=== PATIENT | male | born 1940 | race Caucasian/White ===

== ENCOUNTER 2016-10-26 12:12 | Observation (INO) | payer MEDICARE ==
[~2016-10-26] VITALS: Ht 162.6 cm; Wt 115.5 kg
[2016-10-26 12:53] LABS: BASOPHILS 0.4 % (0.0-2.0); EOSINOPHILS 1.5 % (0-7); HEMATOCRIT 45.2 % (42.0-54.0); HEMOGLOBIN 15.7 g/dL (13.5-17.5); IMMATURE GRANULOCYTES 0.5 % (0-5); LYMPHOCYTES 11.1 % (15-50); MCH 33.1 pg (26.0-34.0); MCHC 34.7 g/dL (31.0-37.0); MCV 95.2 fL (80.0-100.0); MEAN PLATELET VOLUME 9.4 fL (7.4-10.4); MONOCYTES 6.9 % (2-11); NEUTROPHILS 79.6 % (40-80); PLATELET COUNT 144 10x3/uL (130-400); RBC 4.75 10x6/uL (4.20-6.10); RDW 12.8 % (11.5-14.5); WBC 14.3 10x3/uL (4.8-10.8)
[2016-10-26 13:00] LABS: APTT 28.1 SECONDS (22.8-39.4); INR 1.1 (0.85-1.17); PROTIME 14.1 SECONDS (11.6-15.0)
--- NOTE | 2016-10-26 13:06 | NUR ---
TRANSFER FROM ADMISSIONS BY W/C. OREINTED TO ROOM. CALL LIGHT IN REACH. WILL CONT. PLAN OF CARE.
[2016-10-26 13:13] LABS: ALBUMIN 4.1 g/dL (3.4-5.0); ALKALINE PHOSPHATASE 59 U/L (46-116); ALT (SGPT) 37 U/L (10-68); CALC OSMOLALITY 290 mosm/kg (275-300); CALCIUM 8.9 mg/dL (8.5-10.1); CARBON DIOXIDE 30.3 mmol/L (21.0-32.0); CHLORIDE - SERUM 105 mmol/L (98-107); CREATININE - SERUM 1.3 mg/dL (0.6-1.3); GLUCOSE 143 mg/dL (74-106); SODIUM 143 mmol/L (136-145); UREA NITROGEN 23 mg/dL (7-18); eGFR NON AFRICAN AMERICAN 57 mL/min (90-120)
[2016-10-26 13:14] LABS: C-REACTIVE PROTEIN < 0.2 mg/dL (0.0-0.9)
[2016-10-26] MEDS ORDERED: FUROSEMIDE20 MG PO (13:26)
[2016-10-26] MEDS ORDERED: COREG12.5 MG PO (13:26)
[2016-10-26] MEDS ORDERED: BAYER CHEWABLE81 MG PO (13:26)
[2016-10-26] MEDS ORDERED: MULTIPLE VITAMI1 TA1 PO (13:27)
[2016-10-26] MEDS ORDERED: VITAMIN B-12500 MC1 PO (13:27)
[2016-10-26] MEDS ORDERED: LIPITOR20 MG PO ×2 (13:28→13:32)
[2016-10-26] MEDS ORDERED: DESERYL100 MG PO (13:29)
[2016-10-26] MEDS ORDERED: XALATAN 0.0052.5 ML EACH EYE (13:31)
[2016-10-26] MEDS ORDERED: AZOPT 1% OPHT D10 ML EACH EYE (13:32)
[2016-10-26 13:33] VITALS: BP 149/100; Ht 162.6 cm; Wt 115.5 kg
[2016-10-26 14:21] LABS: CKMB 1.5 U/L (0.0-3.6); CREATINE KINASE 49 UL (21-232); TROPONIN-I 0.037 ng/mL (0.000-0.060)
[2016-10-26 16:39] VITALS: BP 168/79
[2016-10-26 18:44] LABS: CKMB 1.5 U/L (0.0-3.6); CREATINE KINASE 50 UL (21-232); TROPONIN-I 0.042 ng/mL (0.000-0.060)
--- NOTE | 2016-10-26 19:30 | NUR ---
RESUMED CARE OF PT, UP IN CHAIR RESPIRATIONS EVEN AND UNLABORED ON ROOM AIR. 78 FLUTTER ON TELEMETRY. LEFT THUMB IV INFUSING NS @ 75 AND CARDIZEM @ 10. PLAN OF CARE DISCUSSED, CALL LIGHT IN REACH. WILL CONTINUE TO MONITOR. SEE NURSE ASSESSMENT.
[2016-10-26 20:00] VITALS: BP 159/79
[2016-10-27] VITALS: BP 148/75
[2016-10-27 02:31] LABS: CKMB 1.3 U/L (0.0-3.6); CREATINE KINASE 45 UL (21-232); TROPONIN-I 0.055 ng/mL (0.000-0.060)
--- NOTE | 2016-10-27 03:18 | NUR ---
DIRECTOR QUALITY SYSTEMS AT BEDSIDE TO OBTAIN VITALS, CALL LIGHT IN REACH. WILL CONTINUE WITH PLAN OF CARE.
[2016-10-27 04:00] VITALS: BP 142/73
[2016-10-27 07:26] VITALS: BP 138/75
--- NOTE | 2016-10-27 09:55 | NUR ---
TELEMETRY SR. HR 76. WILL CONT. PLAN OF CARE.
[2016-10-27] MEDS ORDERED: CARDIZEM CD240 MG PO (10:30)
--- NOTE | 2016-10-27 11:34 | NUR ---
IV AND TELEMETRY DCD. DC PLANS GIVEN. UNDAERSTANDING VOICED. ESCORTED TO CAR BY W/C.
--- NOTE | 2016-10-30 13:25 | CN ---
PATIENT NAME:DEJON MTZ MEDICAL RECORD: [id number] : 44 LOCATION:D. 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 He has been feeling off and on poorly with bronchitic type symptomatology. He has had steroids and antibiotics. Today, he had worsening of shortness of breath, presented to Dr. Yu's office, noted to be in atrial flutter, 2:1 block. We are asked to see him concerning his cardiovascular status. He is somewhat dyspneic. No palpitations. No nayeli volume overload. PAST MEDICAL HISTORY: Include: 1. History of coronary artery disease. 2. Hypertension. 3. Hyperlipidemia. ALLERGIES: CODEINE AND HYDROCODONE. MEDICATIONS: Include Lasix 20 every day, trazodone 100 q.h.s., aspirin 81 every day, Coreg 25 b.i.d. and atorvastatin 20 every day. SOCIAL HISTORY: . He is a nonsmoker and nondrinker. Easily takes care of his ADLs. No set exercise program. Good family support. REVIEW OF SYSTEMS: The patient reports easy bruising but reports no swollen glands. The patient reports no fever, no night sweats, no significant weight gain, no significant weight loss. No significant exercise tolerance. The patient reports no dry eyes, no irritation, no vision change. Patient reports no difficulty hearing and no ear pain. Patient reports no frequent nose bleeds or nose and sinus problems. Patient reports on arm pain on exertion. No shortness of breath while lying down. No history of heart murmur. Patient reports no cough, no wheezing or coughing up blood. Patient reports no abdominal pain, no vomiting. Normal appetite. No diarrhea and not vomiting blood. No nausea and no constipation. Patient reports no incontinence. No difficulty urinating. No hematuria. No increased frequency. Patient reports no muscle aches. No weakness, no arthralgias, no back pain. No swelling of the extremities. Patient reports no abnormal mole, no jaundice, no rashes. Reports no loss of consciousness. No weakness and no numbness. No seizures, dizziness, or headaches. The patient reports no depression, no sleep disturbance, feeling safe in a relationship and no alcohol abuse. Patient reports on fatigue. Reports no runny nose or sinus pressure. No itching, no hives, and no frequent sneezing. PHYSICAL EXAMINATION: GENERAL: Pleasant 76-year-old gentleman, in no acute distress. VITAL SIGNS: Blood pressure 149/100, 149 regular currently. HEENT: Normocephalic and atraumatic. NECK: There is no JVD or bruit. CONSULT REPORT [id number] DEJON MTZ HEART: Regular. LUNGS: Good air excursion. ABDOMEN: Soft and nontender. EXTREMITIES: Pulse well preserved, 2+, with no edema. IMPRESSION: Atrial flutter of unknown duration may be related to his recent illness, steroids, etc. At this point in time, start Xarelto for cerebrovascular accident prophylaxis. We will start Cardizem drip, could be able to switch this over orally. Further recommendations based on above. TRANSINT:[id number] Voice Confirmation ID: [id number] DOCUMENT ID: [id number] LORETTA MARES MD at 1325 CC: [id number] DICTATION DATE: 10/26/16 1403 CARDIOVASCULAR SURGICAL TECH: 10/26/16 1632 DIS IN 10/27/16 [id number] [place] [address]
== END 2016-10-27 11:35 | disposition home or self-care (01) ==
LOC: D.M2 12:12 → OBSVTIME 12:13 → D.M2 10-27 11:35
PROVIDERS: ADMIT Family Medicine
DX: I48.92 Unspecified atrial flutter (principal); I25.10 Atherosclerotic heart disease of native coronary artery without angina pectoris; I10 Essential (primary) hypertension; E78.5 Hyperlipidemia, unspecified; J44.9 Chronic obstructive pulmonary disease, unspecified; E11.9 Type 2 diabetes mellitus without complications

== ENCOUNTER 2017-02-01 10:16 | Outpatient (CLI) | payer MEDICARE ==
[~2017-02-01] VITALS: Ht 162.6 cm; Wt 118.2 kg
--- NOTE | ~2017-02-01 | HEMODYNAMI ---
PATIENT:DEJON MTZ MEDICAL RECORD: [id number] : 44 LOCATION:DRossCAT ADMISSION DATE: 02/01/17 Generatedon:02/01/201714:22 Patient name: DEJON MTZ Patient #: [id number] SSN: : 1940 Date of study: 02/01/2017 Page: Of Hemodynamic Procedure Report Patient Data Patient Demographics Procedure consent was obtained First Name: DEJON Gender: Male Last Name: SMITH : 1940 [facility] Initial: SAUL Age: 76 year(s) Patient #: [id number] Race: Unknown Additional ID: [id number] Contact details [address]: [address] [place] [address] [place] State: [place] City: [place] Zip code: [address] Admission Admission Data Admission Date: 02/01/2017 Admission Time: 10:16 Arrival Date: 02/01/2017 Arrival Time: 13:00 Admit Source: Other Insurance Payor: Medicare Height (in.): 64 BSA: 2.22 (m2) Height (cm.): 162.56 BMI: 46.17 (kg/m2) Weight (lbs.): 269 Weight (kg.): 122.02 Lab Results Lab Result Date: 02/01/2017 Lab Result Time: 0:00 Biochemistry Name Units Result Min Max BUN mg/dl 43 --(----)-* 7 18 Creatinine mg/dl 1.6 --(----)-* 0.6 1.3 CBC Name Units Result Min Max Hemoglobin g/dl 13.1 -*(----)-- 13.5 17.5 Procedure Procedure Types Cath Procedure Diagnostic Procedure Cardioversion BERONICA Procedure Description Procedure Date Procedure Date: 02/01/2017 Procedure Start Time: 14:02 Procedure End Time: 14:08 Procedure Staff Name Function Carter Tamayo MD Performing Physician Shelby Hall RN Nurse Danielito Fritz RT Monitor Romelia Campos RT Radiological Technologist Procedure Data Cath Procedure Fluoroscopy Diagnostic fluoroscopy Total fluoroscopy Time: 0 time: 0 min min Diagnostic fluoroscopy Total fluoroscopy dose: 0 dose: 0 mGy mGy Contrast Material Contrast Material Type Amount (ml) Isovue 370 0 Estimated blood loss: 0 ml Procedure Complications No complications Procedure Medications Medication Administration Route Dosage Oxygen NC 2 l/min Hurricaine [place] P.O. 1 Sprays Refer to Anesthesia Notes for Sedation Medications Hemodynamics Rest BSA: 2.22 (m2) O2 Consumption: Estimated: 301.92 (ml/min) O2 Consumption indexed : Estimated:136 (ml/min/m) Pre Cath Intra NCS Post Cath Vital Signs Time Heart Resp SPO2 etCO2 [id number] NIBP (mmHg) Rhythm Pain Sedat ion Rate (ipm) (%) (mmHg) (mmHg) Status Level (bpm) 13:57:53 132 20 96 0 0 138/102(116) A-Flutter 0 (11) 10(A) , No pain 14:02:52 125 16 100 36 0 Measuring A-Flutter 0 (11) 10(A) , No pain 14:03:43 116 22 99 38 4.4 73/36(62) A-Flutter 0 (11) 5(A) , No pain 14:07:55 92 16 96 0 0 84/55(64) NSR 0 (11) 5(A) , No pain 14:11:12 94 16 100 0 0 Time NSR 0 (11) 5(A) Exceeded , No pain 14:13:25 90 16 100 0 0 97/69(73) NSR 0 (11) 5(A) , No pain 14:17:20 88 16 100 39.5 2.2 91/48(83) NSR 0 (11) 9(A) , No pain 14:20:59 90 12 98 38.6 0 95/67(90) NSR 0 (11) 9(A) , No pain Medications Time Medication Route Dose Verified Delivered Reason Notes Effective ness by by 14:00:59 Oxygen NC 2 Carter Ryan Per l/min St. Everardo Hall RN physician 14:01:08 Hurricaine P[address] Carter Machado Per [place] [facility] MD AGUIRRE 14:01:14 Refer to Carter Machado [facility] Notes for MD AGUIRRE Sedation Medications Procedure Log Time Note 13:30:23 Shelby Hall RN sent for patient. Start room use. 13:42:25 Time tracking: Regular hours 13:42:29 Plan of Care:Hemodynamics will remain stable., Cardiac rhythm will remain stable., Comfort level will be maintained., Respiratory function will remain adequate., Patient/ family verbilizes understanding of procedure., Procedure tolerated without complication., Recovers from procedure without complications.. 13:47:30 Humberto White S[employer] Programmer Remote present for BERONICA. 13:49:14 Patient arrived from Pre/Post Procedure Room to [facility] 1. Patient remains on bed/stretcher for procedure. 13:49:16 Warm blankets applied, and ivette hugger turned on for patient comfort. 13:49:16 Correct patient and procedure confirmed by team. 13:49:18 Signed procedure consent form obtained from patient. 13:49:26 ECG and BP/O2 sat monitors applied to patient. 13:49:39 Quick Combo opened to sterile field. 13:50:04 H&P Date Dictated: 01/30/2017 Within 30 days and on chart., H&P Addendum completed by physician on day of procedure. (MUST COMPLETE FOR ALL OUTPATIENTS). 13:50:06 Pre-procedure instructions explained to patient. 13:50:07 Pre-op teaching completed and patient verbalized understanding. 13:50:08 Family in waiting room. 13:50:10 Patient NPO since Midnight. 13:50:13 Is the patient allergic to Iodine/contrast media? No. 13:50:16 Is patient on blood thinner?No 13:52:55 Sang Newby present and monitoring patient for TIVA. 13:53:00 Quick combo pads placed on patients chest and back. 13:55:17 Patient diabetic? No. 13:55:21 Previous problem with sedation/anesthesia? No ? 13:55:23 Snore? Yes 13:55:25 Sleep apnea? Yes 13:55:27 Deviated septum? No 13:55:28 Opens mouth fully? Yes 13:55:29 Sticks out tongue? Yes 13:55:34 Airway obstruction? No ? 13:55:39 Dentures? No ? 13:55:43 Pre procedure: right dorsailis pedis pulse 1+ Palpable, but thready & weak; easily obliterated 13:55:45 Patient pain scale 0/10 ?. 13:55:51 IV patent on arrival in left forearm with 0.9% NaCl at O. 13:56:36 Vital chart was started 13:57:50 Lab Result : BUN 43 mg/dl 13:57:50 Lab Result : Hemoglobin 13.1 g/dl 13:57:50 Lab Result : Creatinine 1.6 mg/dl 13:58:09 Lab results completed and on chart. 13:58:21 Left chest area was prepped with chlora-prep and draped in sterile fashion 13:58:22 Alarms reviewed by R. N. 13:58:22 Sharps counted by scrub and verified by R.N. 13:58:24 Physician arrived 13:58:24 --------ALL STOP TIME OUT------ 13:58:25 Final Timeout: patient, procedure, and site verified with staff and physician. All members of the team are in agreement. 13:58:33 Physical assessment completed. ASA score P 2 - A patient with mild systemic disease as per Carter Tamayo MD. 13:58:37 Sedation plan: TIVA Propofol 14:00:59 Oxygen 2 l/min NC was administered by Shelby Hall RN; Per physician; 14:01:08 Hurricaine [place] 1 Sprays P.O. was administered by Carter Tamayo MD; Per physician; 14:01:14 Refer to Anesthesia Notes for Sedation Medications was administered by Carter Tamayo MD; Per physician; 14:02:16 Procedure started. 14:02:17 Full Disclosure recording started 14:03:36 BERONICA started. 14:05:31 BERONICA completed. 14:05:33 Defibrillator synced and charged to 200 Joules. 14:05:37 Shock delivered. 14:06:22 Patient cardioverted to sinus rhythm . 14:06:30 Procedure ended.(Physican Out) 14:07:55 Fluoroscopy time 00.00 minutes. 14::58 Fluoroscopy dose: 0 mGy 14:07:58 Flurop Dose total: 0 14:08:03 Contrast amount:Isovue 370 0ml. 14:08:04 Sharps counted by scrub and verified by R.N. 14:08:06 Insertion/operative site no bleeding no hematoma. 14:08:10 Post procedure rhythm: sinus rhythm 14:08:12 Estimated blood loss: 0 ml 14:08:25 Procedure and supply charges have been captured, reviewed, submitted and are correct. 14:08:30 Procedure Complication : No complications 14:08:32 Vital chart was stopped 14:08:33 See physician's report for complete and final results. 14:08:36 Report given to Pre/Post Procedure Room. 14:08:38 Patient transfered to Pre/Post Procedure Room with Stretcher. 14:08:40 Procedure ended. 14:08:40 Full Disclosure recording stopped 14:08:56 End room use (Document Last) 14:11:09 Admit Source: Other 14:11:15 Arrival Date: 02/01/2017 1:00:00 PM 14:11:30 Insurance Payor : Medicare 14:11:40 Patient Height : 64 cm 14:11:45 Patient Weight : 269 kg 14:16:18 Vital chart was started 14:21:37 Vital chart was stopped Device Usage Item Manufacture Quantity Catalog Hospital Part Current Minimal Lot# / Name Number Charge Number Stock [facility]# Code [facility] [employer] [place] [address] [id number] Combo Signature Audit [place] Stage Time Signature Unsigned Intra-Procedure 02/01/2017 Romelia Campos 2:22:13 PM RT(R) Signatures Monitor : Danielito Fritz RT Signature : Date : Time : [address] [address]
[~2017-02-01 10:16] MED LIST: AZOPT 1% OPHT D10 ML EACH EYE; BAYER CHEWABLE81 MG PO; CARDIZEM CD240 MG PO; COREG12.5 MG PO; DESERYL100 MG PO; FUROSEMIDE20 MG PO; LIPITOR20 MG PO; MULTIPLE VITAMI1 TA1 PO; VITAMIN B-12500 MC1 PO; XALATAN 0.0052.5 ML EACH EYE
[2017-02-01] MEDS ORDERED: XARELTO20 MG PO (11:11)
[2017-02-01] MEDS ORDERED: BETAPACE 120 M120 MG PO (11:12)
[2017-02-01] MEDS ORDERED: VITAMIN B-12500 MC1 PO (11:13)
[2017-02-01 11:16] VITALS: BP 113/75; Ht 162.6 cm; Wt 118.2 kg
[2017-02-01 11:35] LABS: BASOPHILS 0.2 % (0-2); EOSINOPHILS 0.5 % (0-7); HEMOGLOBIN 13.1 g/dL (13.5-17.5); IMMATURE GRANULOCYTES 0.3 % (0-5); LYMPHOCYTES 9.1 % (15-50); MCH 32.8 pg (26.0-34.0); MCHC 33.6 g/dL (31.0-37.0); MCV 97.7 fL (80.0-100.0); MEAN PLATELET VOLUME 9.8 fL (7.4-10.4); MONOCYTES 6.3 % (2-11); NEUTROPHILS 83.6 % (40-80); RBC 3.99 10x6/uL (4.20-6.10); RDW 14.8 % (11.5-14.5); WBC 10.4 10x3/uL (4.8-10.8)
[2017-02-01 11:42] LABS: PLATELET COUNT 184 10x3/uL (130-400)
[2017-02-01 12:02] LABS: ANION GAP 11.9 mmol/L (8-16); CALCIUM 9.2 mg/dL (8.5-10.1); CARBON DIOXIDE 32.7 mmol/L (21.0-32.0); CREATININE - SERUM 1.6 mg/dL (0.6-1.3); POTASSIUM - SERUM 3.6 mmol/L (3.5-5.1)
[2017-02-01 12:23] LABS: INR 2.05 (0.85-1.17); PROTIME 23.1 SECONDS (11.6-15.0)
[2017-02-01] MEDS ORDERED: HYZAAR 100-25 T1 TAB PO (14:40)
--- NOTE | 2017-02-01 15:08 | NUR ---
1445 AWAKE, SITTING UP IN BED. ROOM AIR WITH NO RESP DISTRESS. NSR RATE 92 W NO C/O CHEST PAIN. PULSES PALP X4. AND DAUGHTER AT BEDSIDE.
--- NOTE | 2017-02-01 15:31 | NUR ---
1515 SITTING UP TALKING WITH FAMILY AT BEDSIDE. ALL VITALS REMAIN WNL. PIV REMOVED FROM LEFT HAND WITH BANDAID APPLIED. EATING TURKEY SANDWICH WITH ASSIST FROM FAMILY.
--- NOTE | 2017-02-01 16:07 | NUR ---
1540 AMBULATED TO BATHROOM WITH ASSIST FROM NURSE. D/C INSTRUCTIONS DISCUSSED WITH PATIENTS AND . WHEELED OUT VIA WHEELCHAIR BY CATH TEAM.
--- NOTE | 2017-02-04 10:14 | TEE ---
PATIENT:DEJON MTZ MEDICAL RECORD: [id number] LOCATION:D.CAT AGE OF PATIENT: 76 ADMISSION DATE: 02/01/17 SEX: M REFERRING PHYSICIAN: INTERPRETING PHYSICIAN: LORETTA MARES MD TRANSESOPHAGEAL ECHOCARDIOGRAM BERONICA CHARGE Y INDICATIONS: AFIB/FLUTTER ASSESS FOR CLOTS PREMEDICATIONS: PATIENT'S RESPONSE PROCEDURE DOPPLER MEASUREMENTS: LVIT LA PA RA LVOT RVOT Asc. Ao AV Gradient Peak AV Mean AV Area MV Gradient Peak MV Mean MV Area INTERPRETATION: Doppler: 2-D: EF 20-25% , 4 CHAMBER DILATED COLOR FLOW DOPPLER MILD/MOD MR, MILD PLUS TR NORMAL SALINE STUDY: MISCELLANOUS: DIAGNOSIS: PLAN: Histology Technologist:10 Dr. Tamayo Mat Making Machine Tender: Gloria LAM COMMENTS: DATE OF SERVICE: 02/01/2017 DESCRIPTION OF PROCEDURE: After general sedation via TIVA anesthesia, transesophageal Omniplane probe was placed in the distal esophagus to proximal stomach without difficulty. FINDINGS: LVH present. LV internal dimensions are normal. LV is globally hypokinetic, reduced EF at 25%. Aortic valve is tricuspid. There is stenosis; however, there is adequate valve excursion. Left atrium appears dilated. Left TRANSESOPHAGEAL ECHOCARDIOGRAM REPORT [id number] DEJON MTZ atrial appendage is well visualized without evidence of thrombus. There is mild plus mitral regurgitation by color flow imaging. Right-sided chambers were grossly normal. Bozh-if-wdhiuwuy TR by color flow imaging. At the end of procedure, transesophageal Omniplane probe was turned posteriorly. This showed mild atherosclerotic debris in the descending aorta. PLAN: Proceed with cardioversion. TRANSINT:[id number] Voice Confirmation ID: [id number] DOCUMENT ID: [id number] at 1014 CC: [id number] DICTATION DATE: 02/01/17 1419 GRAB SETTER: 02/02/17 0355 DEP CLI 02/01/17 [place] [address]
--- NOTE | 2017-02-04 10:14 | OP ---
PATIENT NAME: DEJON MTZ MEDICAL RECORD: [id number] :42 LOCATION:D.CAT ADMISSION DATE: SURGEON: LORETTA MARES MD DATE OF OPERATION: 02/01/2017 Cardioversion Note DESCRIPTION OF PROCEDURE: After general sedation via TIVA via anesthesia, a single synchronized shock successful in restoring atrial fibrillation to normal sinus rhythm. IMPRESSION: Successful cardioversion, atrial flutter, normal sinus rhythm. COMPLICATIONS: None. DISPOSITION: To the floor, stable. TRANSINT:[id number] Voice Confirmation ID: [id number] DOCUMENT ID: [id number] LORETTA MARES MD at 1014 CC: [id number] DICTATION DATE: 02/01/17 1420 INSTRUMENTATION CONTROLS ENGINEER: 02/01/17 2342 DEP CLI 02/01/17 [facility] [address] [place] [address]
== END 2017-02-01 16:09 | disposition home or self-care (01) ==
LOC: D.CATH 10:16
PROVIDERS: Internal Medicine Interventional Cardiology
DX: I48.91 Unspecified atrial fibrillation (principal); I48.92 Unspecified atrial flutter; I51.7 Cardiomegaly; I34.0 Nonrheumatic mitral (valve) insufficiency; I07.1 Rheumatic tricuspid insufficiency; I70.0 Atherosclerosis of aorta; Z01.812 Encounter for preprocedural laboratory examination

== ENCOUNTER 2017-02-02 13:29 | Emergency (ER) | payer MEDICARE ==
[2017-02-01 11:16] VITALS: BMI 44.7
[~2017-02-02 13:29] MED LIST changes: +BETAPACE 120 M120 MG PO; +HYZAAR 100-25 T1 TAB PO; +XARELTO20 MG PO
[2017-02-02 15:06] LABS: BASOPHILS 0.2 % (0-2); EOSINOPHILS 0 % (0-7); HEMATOCRIT 38.5 % (42.0-54.0); HEMOGLOBIN 12.9 g/dL (13.5-17.5); IMMATURE GRANULOCYTES 0.2 % (0-5); LYMPHOCYTES 9.3 % (15-50); MCH 32.9 pg (26.0-34.0); MCHC 33.5 g/dL (31.0-37.0); MCV 98.2 fL (80.0-100.0); MEAN PLATELET VOLUME 10.1 fL (7.4-10.4); MONOCYTES 7.1 % (2-11); NEUTROPHILS 83.2 % (40-80); PLATELET COUNT 192 10x3/uL (130-400); RBC 3.92 10x6/uL (4.20-6.10); RDW 14.9 % (11.5-14.5); WBC 12.2 10x3/uL (4.8-10.8)
[2017-02-02 15:18] LABS: ALBUMIN 3.6 g/dL (3.4-5.0); ANION GAP 13.7 mmol/L (8-16); BILIRUBIN - TOTAL 1.4 mg/dL (0.2-1.3); CARBON DIOXIDE 31.8 mmol/L (21.0-32.0); CREATININE - SERUM 2.9 mg/dL (0.6-1.3); POTASSIUM - SERUM 3.5 mmol/L (3.5-5.1); PROTEIN - SERUM 6.6 g/dL (6.4-8.2)
[2017-02-02 15:24] LABS: APPEARANCE HAZY (CLEAR); BILIRUBIN NEGATIVE (NEGATIVE); COLOR YELLOW (YELLOW); GLUCOSE NEGATIVE (NEGATIVE); KETONE NEGATIVE (NEGATIVE); LEUKOCYTE ESTERASE TRACE (NEGATIVE); NITRITE NEGATIVE (NEGATIVE); PROTEIN 1+ mg/dL (NEGATIVE); SPECIFIC GRAVITY 1.025 (1.005-1.020); UROBILINOGEN NORMAL (NORMAL)
[2017-02-02 15:25] LABS: BACTERIA MODERATE /hpf (NONE SEEN); EPITHELIAL CELLS 0-5 /hpf (0-5); HYALINE CAST OCC /lpf (NONE SEEN); RED CELLS - URINE 0-5 /hpf (0-5); WHITE CELLS - URINE 0-5 /hpf (0-5)
== END 2017-02-02 18:32 | disposition home or self-care (01) ==
LOC: D.ER 13:29
PROVIDERS: Emergency Medicine
DX: E86.0 Dehydration (principal); I95.9 Hypotension, unspecified; I48.92 Unspecified atrial flutter; I10 Essential (primary) hypertension; I25.10 Atherosclerotic heart disease of native coronary artery without angina pectoris; E78.5 Hyperlipidemia, unspecified; R00.1 Bradycardia, unspecified; I44.0 Atrioventricular block, first degree; I45.10 Unspecified right bundle-branch block

== ENCOUNTER 2017-02-03 16:24 | Inpatient (IN) | payer MEDICARE ==
[2017-02-03] VITALS (12 sets, daily range): BP systolic 110–137; BP diastolic 69–90
[~2017-02-03] VITALS: Ht 162.6 cm; Wt 127.3 kg
[2017-02-03 18:16] LABS: BASOPHILS 0.1 % (0-2); EOSINOPHILS 0.4 % (0-7); HEMATOCRIT 40.4 % (42.0-54.0); HEMOGLOBIN 13.1 g/dL (13.5-17.5); IMMATURE GRANULOCYTES 0.2 % (0-5); LYMPHOCYTES 8.9 % (15-50); MCH 32.6 pg (26.0-34.0); MCHC 32.4 g/dL (31.0-37.0); MCV 100.5 fL (80.0-100.0); MEAN PLATELET VOLUME 10.4 fL (7.4-10.4); NEUTROPHILS 83.4 % (40-80); PLATELET COUNT 229 10x3/uL (130-400); RBC 4.02 10x6/uL (4.20-6.10); RDW 15.1 % (11.5-14.5); WBC 13.8 10x3/uL (4.8-10.8)
[2017-02-03 18:30] LABS: ALBUMIN 3.4 g/dL (3.4-5.0); ALKALINE PHOSPHATASE 51 U/L (46-116); ALT (SGPT) 31 U/L (10-68); BILIRUBIN - TOTAL 0.83 mg/dL (0.2-1.3); CALC OSMOLALITY 295 mosm/kg (275-300); CALCIUM 8.4 mg/dL (8.5-10.1); CARBON DIOXIDE 27.8 mmol/L (21.0-32.0); CHLORIDE - SERUM 95 mmol/L (98-107); CREATININE - SERUM 4.2 mg/dL (0.6-1.3); GLUCOSE 193 mg/dL (74-106); POTASSIUM - SERUM 4.1 mmol/L (3.5-5.1); PROTEIN - SERUM 6.1 g/dL (6.4-8.2); SODIUM 133 mmol/L (136-145); UREA NITROGEN 83 mg/dL (7-18); eGFR NON AFRICAN AMERICAN 15 mL/min (90-120)
[2017-02-03 18:45] LABS: CKMB 3.3 U/L (0.0-3.6); CREATINE KINASE 102 UL (21-232)
[2017-02-03 18:48] LABS: TROPONIN-I 0.117 ng/mL (0.000-0.060)
[2017-02-03 20:18] LABS: APPEARANCE HAZY (CLEAR); COLOR YELLOW (YELLOW)
[2017-02-03 20:19] LABS: BILIRUBIN NEGATIVE (NEGATIVE); GLUCOSE NEGATIVE (NEGATIVE); KETONE NEGATIVE (NEGATIVE); LEUKOCYTE ESTERASE TRACE (NEGATIVE); NITRITE NEGATIVE (NEGATIVE); PROTEIN 3+ mg/dL (NEGATIVE); SPECIFIC GRAVITY 1.025 (1.005-1.020); UROBILINOGEN NORMAL (NORMAL)
[2017-02-03 20:20] LABS: AMORPHOUS SEDIMENT <1+ /lpf (NONE SEEN); BACTERIA MODERATE /hpf (NONE SEEN); EPITHELIAL CELLS 0-5 /hpf (0-5); RED CELLS - URINE 0-5 /hpf (0-5); WHITE CELLS - URINE 0-5 /hpf (0-5)
--- NOTE | 2017-02-03 20:30 | NUR ---
PT ARRIVED TO UNIT ON STRETCHER WITH ER STAFF, SOCRATES SAHNI WHO GAVE REPORT. PT TRANSFERED TO BED SAFELY, VITAL OBTAINED. SILVER WATCH AND SILVER GLASSESS NOTED ONLY PERSONAL ITEMS WITH HIM. ADMISSIONS ASSESSMENT COMPLETED AT THIS TIME, PLEASE SEE FLOW SHEETS FOR DETAILS. CAME INTO ROOM, PART OF HX RECIEVED FROM HER AND THEIR DAUGHTER THU. ALL QUESTIONS ANSWERED TO BEST OF ABILITY. PT REQUESTED ICE CHIPS, THIS WAS PROVIDED. BED LOW AND LOCKED, CALL LIGHT IN REACH. SCD'S ON AND RUNNING. VSS, WILL CONTINUE POC.
--- NOTE | 2017-02-03 21:13 | NUR ---
RECIEVED REPORT ON THIS PT FROM ER NURSE. ROOM READIED FOR PT.
--- NOTE | 2017-02-03 22:42 | NUR ---
PT RESTING, DENIES PAIN/NEEDS ATT, BED LOW AND LOCKED, CALL LIGHT IN REACH. VSS, WILL CONTINUE TO MONITOR.
--- NOTE | 2017-02-03 23:09 | NUR ---
PT STATES THE SCD'S ARE BOTHERING HIM TOO MUCH AND WANTS THEM OFF, ASSISTED WITH THIS. VSS ATT, BED LOW AND LOCKED, CALL LIGHT IN REACH. WILL CONTINUE POC.
--- NOTE | 2017-02-03 23:44 | NUR ---
REASSESSMENTCOMPLETE, PLEASE SEE FLOW SHEETS FOR DETAILS. BED LOW AND LOCKED, CALL LIGHT IN REACH, VSS, WILL CONTINUE POC.
[2017-02-04] VITALS (44 sets, daily range): BP systolic 67–146; BP diastolic 37–105
--- NOTE | 2017-02-04 01:00 | NUR ---
PT RESTING, NO S&S OF ACUTE DISTRESS NOTED. VSS, BED LOW AND LOCKED, CALL LIGHT IN REACH AND BED ALARM ON. WILL CONTINUE POC.
--- NOTE | 2017-02-04 02:58 | NUR ---
Reassessment complete, please see flow sheets for details. Bed low and locked, call light in reach. Titrating meds per orders. Monitoring BP closely. Bed alarm on. Will continue POC.
--- NOTE | 2017-02-04 05:00 | NUR ---
PT RESTING, BREATHING EVEN AND UNLABORED. NO S&S OF ACUTE DISTRESS NOTED. BED LOW AND LOCKED, CALL LIGHT IN REACH. VSS, WILL CONTINUE POC.
[2017-02-04 06:46] LABS: BASOPHILS 0.1 % (0-2); EOSINOPHILS 1.6 % (0-7); HEMATOCRIT 39.4 % (42.0-54.0); HEMOGLOBIN 13.1 g/dL (13.5-17.5); IMMATURE GRANULOCYTES 0.3 % (0-5); LYMPHOCYTES 9.4 % (15-50); MCH 32.6 pg (26.0-34.0); MCHC 33.2 g/dL (31.0-37.0); MEAN PLATELET VOLUME 9.5 fL (7.4-10.4); NEUTROPHILS 79.6 % (40-80); PLATELET COUNT 222 10x3/uL (130-400); RBC 4.02 10x6/uL (4.20-6.10); RDW 14.7 % (11.5-14.5); WBC 15.8 10x3/uL (4.8-10.8)
[2017-02-04 07:06] LABS: ANION GAP 11.9 mmol/L (8-16); CALCIUM 8.7 mg/dL (8.5-10.1); CARBON DIOXIDE 31.9 mmol/L (21.0-32.0); CREATININE - SERUM 4.3 mg/dL (0.6-1.3); POTASSIUM - SERUM 3.8 mmol/L (3.5-5.1)
--- NOTE | 2017-02-04 07:30 | NUR ---
0730- REC'D PT RESTING IN BED, EYES CLOSED. AROUSES EASILY TO VOICE. ORIENTED X4. ASSESSMENT COMPLETE. SEE FLOWSHEET. DOPAMINE GTT INFUSING AT 3.2 MCG/KG/MIN. MAP GREATER THAN 60. CHANGED TO 2.5 MCG/KG/MIN.
--- NOTE | 2017-02-04 09:45 | NUR ---
0945- PT RESTING IN BED, DR PRUETT TO BEDSIDE. NEW ORDERS REC'D. 1150- PT C/O DISCOMFORT DESCRIBED "ALL OVER". WILL GIVE ORDERED PAIN MEDICATION. 1345- PT PIV IN RIGHT UPPER ARM, INFILTRATED. DOPAMINE GTT OFF. PIV FLUSHED WITH N.S. DC'D WITH CATH TIP INTACT. WARM COMPRESS PLACED ON SITE. 1430- DR ROSAS AT BEDSIDE TO PLACE CVL TO LEFT SUBCLAVIAN. STAT CHEST XRAY ORDERED.
[2017-02-04 13:35] LABS: CREATININE - URINE 157.7 mg/dL (30-125); PROTEIN - URINE 45.1 mg/dL (0.0-11.9)
--- NOTE | 2017-02-04 16:34 | NUR ---
PT UNCOMFORTABLE IN BED. TOSSING AND TURNING. ASSISTED TO RIGHT SIDE.
--- NOTE | 2017-02-04 19:00 | NUR ---
REPORT RECIEVED, INITIAL ASSESSMENT COMPLETE, PLEASE SEE FLOW SHEETS FOR DETAILS. PT SITTING AT SOB. DENIES PAIN/NEEDS ATT. VSS. BED LOW AND LOCKED, CALL LIGHT IN REACH. WILL CONTINUE POC.
--- NOTE | 2017-02-04 21:00 | NUR ---
PT NOW LAYING DOWN. BED LOW AND LOCKED, CALL LIGHT IN REACH. C/O PAIN IN ABD. PAIN MEDS WERE GIVEN ORDERED. VSS ATT, WILL CONTINUE POC.
--- NOTE | 2017-02-04 21:39 | OP ---
PATIENT NAME: DEJON MTZ MEDICAL RECORD: [id number] :42 LOCATION:[facility] D.2305 ADMISSION DATE:02/03/17 SURGEON: GURMEET ROSAS MD DATE OF OPERATION: 02/04/2017 SURGEON: Gurmeet Rosas MD PREOPERATIVE DIAGNOSES: Atrial fibrillation, hypotension, peripheral IV access insufficiency. POSTOPERATIVE DIAGNOSES: Atrial fibrillation, hypotension, peripheral IV access insufficiency. PROCEDURE PERFORMED: Left subclavian central venous line placement. ANESTHESIA: Local. COMPLICATIONS: None. SPECIMEN: None. Case was clean. ESTIMATED BLOOD LOSS: 10 cc. OPERATIVE PROCEDURE: After consent was obtained, the patient was placed in supine position on his ICU bed. The bed was then placed into Trendelenburg position. A timeout was taken to confirm the correct patient and procedure. The left chest and neck were prepped and draped in typical sterile fashion. The local anesthetic was administered. The left subclavian vein was cannulated on the first pass. The guidewire was placed and the needle was removed. A skin incision was made with 11-blade scalpel. The dilator was passed over the wire in standard Seldinger fashion. The catheter was then passed with the wire in standard Seldinger fashion. A Biopatch was placed. The catheter was secured to the skin using 2-0 silk suture. A sterile Tegaderm dressing was placed. All 3 ports were aspirated and flushed without difficulty. At the end of the case, all needle and instrument counts were correct. No complications occurred. The patient tolerated the procedure well. Immediate postoperative chest x-ray was performed to confirm the placement of the line. TRANSINT:[id number] Voice Confirmation ID: [id number] DOCUMENT ID: [id number] GURMEET ROSAS MD at 2139 CC: [id number] DICTATION DATE: 02/04/17 1457 STUDENT ACTIVITIES DIRECTOR: 02/04/170 ADM IN [id number] [place] [address]
--- NOTE | 2017-02-04 23:00 | NUR ---
REASSESSMENT COMPLETE, PLEASE SEE FLOW SHEETS FOR DETAILS. PT MOVES SELF, DENIES PAIN/NEEDS ATT. VSS. BED LOW AND LOCKED, CALL LIGHT IN REACH. WILL CONTINUE POC.
[2017-02-05] VITALS (37 sets, daily range): BP systolic 90–137; BP diastolic 44–87; Ht 162.6 cm; Wt 127.3 kg
--- NOTE | 2017-02-05 01:00 | NUR ---
PT RESTING QUIETLY. RR EVEN AND UNLABORED. BED LOW AND LOCKED, CALL LIGHT IN REACH. VSS, WILL CONTINUE POC.
--- NOTE | 2017-02-05 03:00 | NUR ---
REASSESSMENT COMPLETE, PLEASE SEE FLOW SHEETS FOR DETAILS. DENIES PAIN/NEEDS ATT. BED LOW AND LOCKED, CALL LIGHT IN REACH. VSS, WILL CONTINUE POC.
[2017-02-05 04:30] LABS: BASOPHILS 0.2 % (0-2); EOSINOPHILS 3.2 % (0-7); HEMATOCRIT 36.7 % (42.0-54.0); HEMOGLOBIN 12.1 g/dL (13.5-17.5); IMMATURE GRANULOCYTES 0.4 % (0-5); LYMPHOCYTES 11.8 % (15-50); MCH 32.5 pg (26.0-34.0); MCV 98.7 fL (80.0-100.0); MEAN PLATELET VOLUME 9.6 fL (7.4-10.4); MONOCYTES 9.4 % (2-11); PLATELET COUNT 191 10x3/uL (130-400); RBC 3.72 10x6/uL (4.20-6.10); RDW 15.1 % (11.5-14.5)
[2017-02-05 04:40] LABS: WBC 10.4 10x3/uL (4.8-10.8)
--- NOTE | 2017-02-05 05:00 | NUR ---
PIKE CARE PROVIDED ATT. BED LOW AND LOCKED. CALL LIGHT IN REACH. VSS, WILL CONTINUE POC.
[2017-02-05 05:05] LABS: ALBUMIN 3.5 g/dL (3.4-5.0); ALKALINE PHOSPHATASE 55 U/L (46-116); ALT (SGPT) 36 U/L (10-68); BILIRUBIN - TOTAL 0.85 mg/dL (0.2-1.3); CALC OSMOLALITY 303 mosm/kg (275-300); CARBON DIOXIDE 32.4 mmol/L (21.0-32.0); CHLORIDE - SERUM 97 mmol/L (98-107); CKMB 2.9 U/L (0.0-3.6); CREATINE KINASE 79 UL (21-232); CREATININE - SERUM 3.6 mg/dL (0.6-1.3); GLUCOSE 148 mg/dL (74-106); MAGNESIUM - SERUM 2.9 mg/dL (1.8-2.4); PHOSPHOROUS 7.7 mg/dL (2.5-4.9); POTASSIUM - SERUM 3.6 mmol/L (3.5-5.1); PROTEIN - SERUM 6.6 g/dL (6.4-8.2); SODIUM 136 mmol/L (136-145); UREA NITROGEN 93 mg/dL (7-18); eGFR NON AFRICAN AMERICAN 18 mL/min (90-120)
[2017-02-05 05:06] LABS: TROPONIN-I 0.116 ng/mL (0.000-0.060)
--- NOTE | 2017-02-05 08:00 | NUR ---
PT TRANSERED HER TO CV03. PT IS ALERT AND ORIENTED X4. FLUTTER PER CM. CRACKELS AUSCULTATED BILAT. PT HAS NC @ 2L. PT ATTACHED TO MONITORS, VSS. PIKE/SCDS IN PLACE. WILL CONTINUE TO MONITOR.
--- NOTE | 2017-02-05 10:00 | NUR ---
PT STATES HE IS VERY UNCOMFORTABLE AND ACHES ALL OVER. PT PROVIDED WITH PAIN MEDICINE PER EMAR AT 0934. PT CONTINUES TO COMPLAIN AND STATE HE CANNOT GET COMFORTABLE. PT PROVIDED WITH PILLOW TO PUT BEHIND BACK/HIP. PT CONTINUES TO CALL NURSE AND STATE HE IS UNCOMFORTABLE. UPON ENTERING ROOM PT IS RESTING WITH EYES CLOSED.
--- NOTE | 2017-02-05 10:09 | CN ---
PATIENT NAME:DEJON MTZ MEDICAL RECORD: [id number] : 42 LOCATION:[facility].CV03 ADMIT DATE: 02/03/17 ACCOUNT: [id number] CONSULTING PHYSICIAN: LORETTA MARES MD REFERRING PHYSICIAN: JASMEET MARQUES DO DATE OF CONSULTATION: 02/04/2017 HISTORY OF PRESENT ILLNESS: A 76-year-old gentleman with known history of coronary artery disease, status post coronary artery bypass grafting. He has a history of a recent cardioversion for atrial fibrillation, recent cardioversion ____, history of chronic renal insufficiency, presented with hypotension, was started on ARB post-cardioversion due to myopathy. He received fluids, feeling much better this morning, although creatinine is still 4.3, on dopamine drip at 3 mcg. We are asked to see him concerning his cardiovascular status. PAST MEDICAL HISTORY: Includes: 1. History of cardiomyopathy. 2. Atrial fibrillation. 3. Hypertension. 4. Dyslipidemia, currently on statins. 5. Chronic renal insufficiency. 6. Osteoarthritis. ALLERGIES: CODEINE, HYDROCODONE, SOTALOL AND AMIODARONE. Please note, sotalol and amiodarone are not true allergies. MEDICATIONS ON ADMISSION: Include Xarelto 20 daily, Hyzaar 10/25 daily, Betapace 120 b.i.d., Desyrel 100 q.h.s., Lasix 20 daily. SOCIAL HISTORY: , lives here in [place]. He is nonsmoker. He is able to take care of his ADLs. REVIEW OF SYSTEMS: The patient reports easy bruising but reports no swollen glands. The patient reports no fever, no night sweats, no significant weight gain, no significant weight loss. No significant exercise tolerance. The patient reports no dry eyes, no irritation, no vision change. Patient reports no difficulty hearing and no ear pain. Patient reports no frequent nose bleeds or nose and sinus problems. Patient reports on arm pain on exertion. No shortness of breath while lying down. No history of heart murmur. Patient reports no cough, no wheezing or coughing up blood. Patient reports no abdominal pain, no vomiting. Normal appetite. No diarrhea and not vomiting blood. No nausea and no constipation. Patient reports no incontinence. No difficulty urinating. No hematuria. No increased frequency. Patient reports no muscle aches. No weakness, no arthralgias, no back pain. No swelling of the extremities. Patient reports no abnormal mole, no jaundice, no rashes. Reports no loss of consciousness. No weakness and no numbness. No seizures, dizziness, or headaches. The patient reports no depression, no sleep disturbance, feeling safe in a relationship and no alcohol abuse. Patient reports on fatigue. Reports no runny nose or sinus pressure. No itching, no hives, and no frequent sneezing PHYSICAL EXAMINATION: GENERAL: Pleasant gentleman, in no acute distress. VITAL SIGNS: Blood pressure 120/64, pulse 73 and regular. HEENT: Normocephalic, atraumatic. CONSULT REPORT [id number] DEJON MTZ NECK: No bruits noted. HEART: Regular. A II/ systolic ejection murmur. LUNGS: Fairly good air excursion. ABDOMEN: Soft, nontender. EXTREMITIES: Pulses 2+ with no edema. DIAGNOSTIC DATA: EKG, no acute changes. IMPRESSION: Hypotension, atrial fibrillation, worsening renal insufficiency, this may be related to hypotension with with exacerbation by recent medication and cardiomyopathy. Continue renal-dose dopamine, hold antihypertensives, continue fluids. Further recommendations based on clinical course. TRANSINT:[id number] Voice Confirmation ID: [id number] DOCUMENT ID: [id number] LORETTA MARES MD at 1009 CC: [id number] DICTATION DATE: 02/04/17 1023 [facility] SALES: 02/04/17 1713 ADM IN [facility] [address] [place] [address]
--- NOTE | 2017-02-05 12:04 | NUR ---
LUNCH SERVED TO PT. PT SITTING UP IN BED EATING LUNCH. PT FAMILY AT BEDSIDE.
--- NOTE | 2017-02-05 13:15 | NUR ---
PT HERE TO EVAL PATIENT. PT UP TO CHAIR AT THIS TIME.
--- NOTE | 2017-02-05 14:45 | NUR ---
PT ASSISTED BACK TO BED FROM CHAIR. PT DOES WITH TRANSFER UTILIZING WALKER. PT RESTING COMFORTABLY IN BED AT THIS TIME.
--- NOTE | 2017-02-05 16:00 | NUR ---
PT STATES HE HIT HIS ARM AGAINST THE SIDE OF THE BED. SMALL SKIN TEAR NOTED, DRESSING APPLIED.
--- NOTE | 2017-02-05 17:18 | NUR ---
PT ASSITED UP TO CHAIR AT THIS TIME. PT DOES WILL WITH TRANSFER. PT SITS IN CHAIR TO EAT DINNER.
--- NOTE | 2017-02-05 19:40 | NUR ---
REPORT REC'D AND CARE ASSUMED, REC'D PT SITTING UP IN CHAIR, AWAKE, ALERT, ORIENTED X 4, O2 @ 2 LITERS VIA NC, LTLSCL DRSG CDI WITH NS @ 50CC/HR AND DOPAMINE @ 9.8CC OR 2.5MCG/KG/MIN, PT REPORTS BEING MORE COMFORTABLE UP IN CHAIR, ABDOMEN ROUND, BS ACTIVE, BILAT ARMS WITH BRUISING, DRSG TO RIGHT ELBOW SKIN TEAR, PT DENIES PAIN, SUPPER TRAY IN BS TABLE PT ATE 75%, REMOVED AT THIS TIME, GENERALIZED EDEMA TO LOWER EXT'S, PT DENIES NEEDS, CALL LIGHT AND BS TABLE IN REACH, PT INSTRUCTED NOT TO ATTEMPT TO GET UP WITHOUT CALLING FOR ASSISTANCE FIRST, PT VERBALIZES UNDERSTANDING.
--- NOTE | 2017-02-05 20:15 | NUR ---
PT ASSISTED BACK TO BED, COMPLETE LINEN CHANGE PROVIDED, PT ABLE TO REPOSITION SELF UP IN BED, CALL LIGHT IN REACH, BED IN LOW POSITION.
--- NOTE | 2017-02-05 21:05 | NUR ---
EVENING MEDS GIVEN, NO VISITORS IN AT THIS TIME.
--- NOTE | 2017-02-05 21:45 | NUR ---
PT REQUESTING LIGHT BE TURNED OFF IN ROOM, LIGHT OFF, PT DENIES FURTHER NEEDS, BP STABLE.
--- NOTE | 2017-02-05 22:10 | NUR ---
PT COMPLAINING OF STOMACH CRAMPS, REPORTS PASSING GAS, ASSISTED PT UP WITH WALKER TO BATHROOM, INSTRUCTED TO CALL FOR ASSISTANCE BEFORE RETURNING TO BED.
--- NOTE | 2017-02-05 22:35 | NUR ---
PT REPORTS GAS ONLY, PT ASSISTED BACK TO RECLINER AT BS, BLANKET PROVIDED, CALL LIGHT IN REACH
--- NOTE | 2017-02-05 23:20 | NUR ---
PT REMAINS IN RECLINER EYES CLOSED, RESP EVEN AND UNLABORED, VSS, WILL CONT TO MONITOR CLOSELY FOR CHANGES.
[2017-02-06] VITALS (41 sets, daily range): BP systolic 90–139; BP diastolic 50–85
--- NOTE | 2017-02-06 01:30 | NUR ---
PT AWAKE IN RECLINER, ASSISTED PT BACK TO BED AND REPOSITIONED UP IN BED FOR COMFORT, BLANKET PROVIDED, BP STABLE, WILL MONITOR FOR CHANGES.
--- NOTE | 2017-02-06 02:30 | NUR ---
PT RESTING IN BED EYES CLOSED, RESP EVEN AND UNLABORED, VSS
--- NOTE | 2017-02-06 03:00 | NUR ---
PT AWAKE COMPLAINS OF BEING UNCOMFORTABLE IN BED, PT REPOSITIONED UP IN BED AND ONTO RIGHT SIDE SUPPORTED WITH PILLOWS, VSS, PT DENIES FURTHER NEEDS
--- NOTE | 2017-02-06 03:55 | NUR ---
PT REQUESTING TO GET OOB, PT ASSISTED UP TO BSC RECLINER, CALL LIGHT IN REACH, PT DENIES FURTHE NEEDS.
--- NOTE | 2017-02-06 05:20 | NUR ---
AM LAB DRAWN FROM CV AND SENT TO LAB.
[2017-02-06 05:57] LABS: BASOPHILS 0.3 % (0-2); EOSINOPHILS 3.5 % (0-7); HEMATOCRIT 34.4 % (42.0-54.0); HEMOGLOBIN 11.7 g/dL (13.5-17.5); IMMATURE GRANULOCYTES 0.2 % (0-5); LYMPHOCYTES 11.1 % (15-50); MCH 33.6 pg (26.0-34.0); MCV 98.9 fL (80.0-100.0); MEAN PLATELET VOLUME 9.4 fL (7.4-10.4); MONOCYTES 8.7 % (2-11); NEUTROPHILS 76.2 % (40-80); RBC 3.48 10x6/uL (4.20-6.10)
[2017-02-06 06:00] LABS: PLATELET COUNT 120 10x3/uL (130-400)
[2017-02-06 06:23] LABS: ALBUMIN 3.1 g/dL (3.4-5.0); BILIRUBIN - TOTAL 0.9 mg/dL (0.2-1.3); CALCIUM 7.9 mg/dL (8.5-10.1); CARBON DIOXIDE 33.5 mmol/L (21.0-32.0); POTASSIUM - SERUM 3.5 mmol/L (3.5-5.1)
[2017-02-06 06:31] LABS: CREATININE - SERUM 1.8 mg/dL (0.6-1.3); PHOSPHOROUS 4.4 mg/dL (2.5-4.9)
--- NOTE | 2017-02-06 14:14 | NUR ---
Is the patient Alert and Oriented? Yes 0 * How many steps to enter\exit or inside your home? 4/5 RAIL 0 * PCP 0 * Pharmacy [facility] 0 * Preadmission Environment Home with Family 0 * ADLs Independent 0 * Equipment CPAP 0 * Other Equipment PATIENT STATES HIS CPAP IS 25 YEARS OLD AND HE DOES NOT REMEMBER WHO HE GOT IT FROM 0 * List name and contact numbers for known caregivers / representatives who currently or will assist patient after discharge: SPOUSE: DELMIS [phone] * Community resources currently utilized None 0 * Additional services required to return to the preadmission environment? No 0 * Can the patient safely return to the preadmission environment? Yes 0 * Has this patient been hospitalized within the prior 30 days at any hospital? No PATIENT IS AWAKE AND ALERT SITTING UP IN BEDSIDE CHAIR. HE STATES HE LIVES AT HOME WITH HIS AND WAS INDEPENDENT PRIOR TO COMING INTO THE HOSPITAL. PATIENT STATES HIS DAUGHERT, BREANNE MARTINEZ, WILL DRIVE HIME HOME AT DISCHARGE. HE STATES HIS PCP IS DR. YU. HE GETS HIS MEDS FROM [facility]. PATIENT STATES HE HAS A CPAP THAT HE USES OCCASIONALLY THAT HE'S HAD FOR 25 YEARS. HE DOES NOT RECALL WHO PROVIDED IT FOR HIM. PATIENT STATES THERE ARE 4-5 STEPS WITH A RAIL TO ENTER HIS HOME. PATIENT DENIES ANY DISCHARGE NEEDS AT THIS TIME.
--- NOTE | 2017-02-06 14:30 | NUR ---
REC'D PT REPORT FROM CASH ORTIZ RN, PT CARE ASSUMED, PT SITTING UP IN CHAIR, NO C/O PAIN, VSS.WILL CONTINUE TO MONITOR PT.
--- NOTE | 2017-02-06 15:00 | NUR ---
PT SITTING UP IN CHAIR, NO C/O PAIN, VSS. REASSESSMENT COMPLETED, SEE FLOW SHEET. ROOM FREE OF CLUTTER, CALL LIGHT IN REACH, WILL CONTINUE TO MONITOR PT.
--- NOTE | 2017-02-06 15:30 | NUR ---
PT FAMILY AT THE BEDSIDE, ALL QUESTIONS ANSWERED, VSS, WILL CONTINUE TO MONITOR PT.
--- NOTE | 2017-02-06 18:00 | NUR ---
PT FAMILY AT THE BEDSIDE, ALL QUESTIONS ANSWERED, VSS. WILL CONTINUE TO MONITOR PT.
--- NOTE | 2017-02-06 19:35 | NUR ---
PT REC'D SITTING UP IN RECLINER ON ROOM AIR, AWAKE, ALERT, ORIENTED X 4, PT COMPLAINS OF GENERALIZED DISCOMFORT AND WANTING TO GO HOME, LTLSCL DRSG CDI WITH ALL PORTS SALINE LOCKED, CM-CAF @ 90, ABD ROUND, BS ACTIVE, BILAT ARMS WITH BRUISES NOTED, RIGHT BACK OF ARM WITH DRSG TO SKIN TEAR CDI, GENERALIZED EDEMA NOTED, PT DOES NOT WANT TO RECLINE IN CHAIR, DENIES NEEDS, PT INSTRUCTED TO CALL FOR ASSISTANCE BEFORE ATTEMPTING TO GET UP, VERBALIZES UNDERSTANDING, CALL LIGHT AND BS TABLE IN REACH.
--- NOTE | 2017-02-06 19:45 | NUR ---
PT ASSISTED UP TO BATHROOM WITH USE OF WALKER, PT INSTRUCTED TO CALL WHEN READY TO RETURN TO CHAIR.
--- NOTE | 2017-02-06 20:00 | NUR ---
PT ASSISTED BACK TO RECLINER AND LINEN STRAIGHTENED, LOOSE BROWN STOOL NOTED, PT ASSISTED WITH PERICARE, REQUESTING SOMETHING TO DRINK AT THIS TIME.
--- NOTE | 2017-02-06 20:30 | NUR ---
EVEING MEDS GIVEN AND DIET KIRBY DOMINIQUE, PT REMAINS FRUSTRATED ABOUT NOT GOING HOME, ASKING TO GO WALK THE PARKING LOT OR UP ON THE ROOF, EXPLAINED PT HE COULD WALK WITH ASSISTANCE BUT ONLY INSIDE HOSPITAL, STATES " WELL I WALK ALOT AND IT IS DRIVING ME CRAZY TO SIT HERE", PT STATES " I DID WALK WITH PT TODAY BUT IT WAS ENOUGH", PT DENIES FURTHER NEEDS.
--- NOTE | 2017-02-06 21:00 | NUR ---
NO VISITORS IN AT THIS TIME, PT RESTING QUIETLY IN RECLINER WATCHING TV, WILL MONITOR FOR CHANGES.
--- NOTE | 2017-02-06 22:45 | NUR ---
REPORT CALLED TO KAITLYN RAYMUNDO ON [facility]
--- NOTE | 2017-02-06 22:55 | NUR ---
PT TRANSFERRED TO ROOM 2217 VIA WHEELCHAIR, ASSISTED PT TO BED, SR UP X 2, CALL LIGHT PLACED WITHIN REACH, RECEIVING NURSE AT BS.
--- NOTE | 2017-02-06 23:20 | NUR ---
ATTEMPTED TO REACH PT'S , NO ANSWER, MESSAGE LEFT ON VOICE MAIL RETURN NUMBER PROVIDED. NUMBER ATTEMPTED [phone]
[2017-02-07 04:54] LABS: BASOPHILS 0.2 % (0-2); EOSINOPHILS 2.9 % (0-7); HEMOGLOBIN 11.7 g/dL (13.5-17.5); IMMATURE GRANULOCYTES 0.5 % (0-5); LYMPHOCYTES 13.3 % (15-50); MCH 33.6 pg (26.0-34.0); MCHC 34.4 g/dL (31.0-37.0); MCV 97.7 fL (80.0-100.0); MEAN PLATELET VOLUME 9.6 fL (7.4-10.4); MONOCYTES 10.4 % (2-11); NEUTROPHILS 72.7 % (40-80); PLATELET COUNT 119 10x3/uL (130-400); RBC 3.48 10x6/uL (4.20-6.10); RDW 15.2 % (11.5-14.5); WBC 6.5 10x3/uL (4.8-10.8)
[2017-02-07 05:16] LABS: ALBUMIN 3.3 g/dL (3.4-5.0); ANION GAP 8.9 mmol/L (8-16); BILIRUBIN - TOTAL 1.22 mg/dL (0.2-1.3); CALCIUM 8.4 mg/dL (8.5-10.1); CARBON DIOXIDE 34.5 mmol/L (21.0-32.0); CREATININE - SERUM 1.4 mg/dL (0.6-1.3); POTASSIUM - SERUM 3.4 mmol/L (3.5-5.1); PROTEIN - SERUM 6.1 g/dL (6.4-8.2)
--- NOTE | 2017-02-07 07:30 | NUR ---
RECIEVED PT DURING WALKING ROUNDS, PT RESTING IN BED WITH NO COMPLAINTS OF PAIN OR DISCOMFORT AT THIS TIME. ASSESSMENT DONE PER FLOWSHEET. BED IN LOW POSITION AND CALL LIGHT WITHIN REACH. WILL CONTINUE TO MONITOR.
[2017-02-07 08:02] VITALS: BP 132/70
[2017-02-07] MEDS ORDERED: AUGMENTIN 875-11 TAB PO (09:45)
--- NOTE | 2017-02-07 10:39 | NUR ---
CM REASSESSMENT NOTE: PATIENT IS DISCHARGING HOME TODAY/DAUGHTER DRIVING. PATIENT REFUSED HOME HEALTH AND HAD NO OTHER NEEDS FOR DISCHARGE.
--- NOTE | 2017-02-07 12:04 | NUR ---
Called for removal of TL CVL. On arrival, left upper chest CVL. Sutures removed and CVL removed with cath intact. Pressre to site x 10 minutes and tegaderm dressing applied. Belen De La Cruz RN
--- NOTE | 2017-02-07 12:29 | NUR ---
CENTRAL LINE DC'D BY KAITLYN NICKERSON. DISCHARGE INSTRUCTIONS GIVEN AND PT DISCHARGED TO HOME VIA WHEELCHAIR WITH FAMILY MEMBER.
== END 2017-02-07 12:30 | disposition home or self-care (01) | DRG 314 ==
LOC: D.ER 16:24 → D.CVICU 20:37 → D.ICU 20:37 → D.CVICU 02-05 07:59 → D.MS 02-06 23:01
PROVIDERS: Emergency Medicine; Internal Medicine; Internal Medicine Nephrology; Nurse Practitioner Acute Care; ADMIT Family Medicine
PROC: 0T9B70Z Drainage of Bladder with Drainage Device, Via Natural or Artificial Opening (ICD-10-PCS; 2017-02-03)
PROC: 02HV33Z Insertion of Infusion Device into Superior Vena Cava, Percutaneous Approach (ICD-10-PCS; principal; 2017-02-04)
DX: I95.9 Hypotension, unspecified (principal); I50.23 Acute on chronic systolic (congestive) heart failure; N17.0 Acute kidney failure with tubular necrosis; R57.8 Other shock; J18.0 Bronchopneumonia, unspecified organism; I48.92 Unspecified atrial flutter; I13.0 Hypertensive heart and chronic kidney disease with heart failure and stage 1 through stage 4 chronic kidney disease, or unspecified chronic kidney disease; Z68.41 Body mass index [BMI] 40.0-44.9, adult; I48.91 Unspecified atrial fibrillation; E78.5 Hyperlipidemia, unspecified; N18.9 Chronic kidney disease, unspecified; J44.9 Chronic obstructive pulmonary disease, unspecified; K21.9 Gastro-esophageal reflux disease without esophagitis; E11.22 Type 2 diabetes mellitus with diabetic chronic kidney disease; Z87.891 Personal history of nicotine dependence

== ENCOUNTER 2017-03-12 21:12 | Emergency (ER) | payer MEDICARE ==
[2017-02-05 10:16] VITALS: BMI 47.4
[~2017-03-12 21:12] MED LIST changes: +AUGMENTIN 875-11 TAB PO
== END 2017-03-12 22:34 | disposition home or self-care (01) ==
LOC: D.ER 21:12
DX: R10.9 Unspecified abdominal pain (principal); I10 Essential (primary) hypertension; I48.92 Unspecified atrial flutter; I25.10 Atherosclerotic heart disease of native coronary artery without angina pectoris; E66.9 Obesity, unspecified

== ENCOUNTER 2017-03-15 20:51 | Inpatient (IN) | payer MEDICARE ==
[~2017-03-15] VITALS: Ht 162.6 cm; Wt 126.9 kg
[2017-03-15 21:41] LABS: BASOPHILS 0.3 % (0-2); EOSINOPHILS 2.1 % (0-7); HEMATOCRIT 36.9 % (42.0-54.0); HEMOGLOBIN 12.1 g/dL (13.5-17.5); IMMATURE GRANULOCYTES 0.4 % (0-5); LYMPHOCYTES 10.7 % (15-50); MCH 31.5 pg (26.0-34.0); MCHC 32.8 g/dL (31.0-37.0); MCV 96.1 fL (80.0-100.0); MEAN PLATELET VOLUME 9.2 fL (7.4-10.4); MONOCYTES 9.2 % (2-11); NEUTROPHILS 77.3 % (40-80); RBC 3.84 10x6/uL (4.20-6.10); RDW 13.9 % (11.5-14.5); WBC 10.6 10x3/uL (4.8-10.8)
[2017-03-15 21:44] LABS: PLATELET COUNT 247 10x3/uL (130-400)
[2017-03-15 21:58] LABS: ALBUMIN 3.9 g/dL (3.4-5.0); BILIRUBIN - TOTAL 0.94 mg/dL (0.2-1.3); CALCIUM 8.9 mg/dL (8.5-10.1); PROTEIN - SERUM 7.3 g/dL (6.4-8.2)
[2017-03-15 22:07] LABS: TROPONIN-I 0.03 ng/mL (0.000-0.060)
--- NOTE | 2017-03-16 00:24 | NUR ---
REPORT RECEIVED FROM NILAM SAHNI.
[2017-03-16 01:28] VITALS: BP 97/58
[2017-03-16 02:11] VITALS: BMI 48.2
[2017-03-16] MEDS ORDERED: CARTIA XT240 MG PO (02:38)
[2017-03-16] MEDS ORDERED: K-DUR20 MEQ PO (02:41)
[2017-03-16] MEDS ORDERED: ELOCON45 GM TOPICAL (02:42)
[2017-03-16 04:34] VITALS: BP 119/56
[2017-03-16 08:00] VITALS: BP 134/72
--- NOTE | 2017-03-16 10:09 | NUR ---
URINE SPECIMEN COLLECTED AND TAKEN TO LAB FOR UA. C/O PAIN AND NAUSEA. DR. VALDEZ NURSE NOTIFIED. WILL MONITOR.
[2017-03-16 10:28] VITALS: Ht 162.6 cm; Wt 126.9 kg
[2017-03-16 10:43] LABS: APPEARANCE CLEAR (CLEAR); BILIRUBIN NEGATIVE (NEGATIVE); COLOR YELLOW (YELLOW); GLUCOSE NEGATIVE (NEGATIVE); KETONE NEGATIVE (NEGATIVE); LEUKOCYTE ESTERASE NEGATIVE (NEGATIVE); NITRITE NEGATIVE (NEGATIVE); PROTEIN NEGATIVE (NEGATIVE); SPECIFIC GRAVITY 1.015 (1.005-1.020); UROBILINOGEN NORMAL (NORMAL)
[2017-03-16 12:00] VITALS: BP 127/72
[2017-03-16 16:00] VITALS: BP 131/96
[2017-03-16 19:41] VITALS: BP 129/71
--- NOTE | 2017-03-16 23:44 | NUR ---
PT RESTING WELL WITHOUT C/O OR DISTRESS NOTED. NO CHANGES NOTED IN ASSESSMENT. CALL LIGHT WITHIN REACH. WILL CONT TO MONITOR.
[2017-03-17 00:59] VITALS: BP 125/69
[2017-03-17 05:25] LABS: BASOPHILS 0.1 % (0-2); EOSINOPHILS 1.3 % (0-7); HEMATOCRIT 30.7 % (42.0-54.0); HEMOGLOBIN 10.1 g/dL (13.5-17.5); IMMATURE GRANULOCYTES 0.4 % (0-5); LYMPHOCYTES 8.1 % (15-50); MCH 31.2 pg (26.0-34.0); MCHC 32.9 g/dL (31.0-37.0); MCV 94.8 fL (80.0-100.0); MEAN PLATELET VOLUME 9.1 fL (7.4-10.4); MONOCYTES 7.1 % (2-11); RBC 3.24 10x6/uL (4.20-6.10); RDW 13.8 % (11.5-14.5)
[2017-03-17 05:26] LABS: PLATELET COUNT 180 10x3/uL (130-400)
[2017-03-17 05:39] LABS: ALBUMIN 3.7 g/dL (3.4-5.0); ANION GAP 15.4 mmol/L (8-16); BILIRUBIN - TOTAL 0.85 mg/dL (0.2-1.3); CALCIUM 8.3 mg/dL (8.5-10.1); CARBON DIOXIDE 25.4 mmol/L (21.0-32.0); CREATININE - SERUM 1.9 mg/dL (0.6-1.3); POTASSIUM - SERUM 3.8 mmol/L (3.5-5.1); PROTEIN - SERUM 6.5 g/dL (6.4-8.2)
--- NOTE | 2017-03-17 07:22 | NUR ---
ASSESSMENT COMPLETED. TELEMERTY SHOWS CAF AT 92. LEFT WRIST WITH CARDIZEM AT 15 AND BUMEX AT 5. LEGS WITH EDEMA. DENIES ANY NEEDS. SR UP WITH CALL LIGHT IN REACH. FAMILY AT BEDSIDE
[2017-03-17 08:58] VITALS: BP 121/89
--- NOTE | 2017-03-17 10:30 | NUR ---
ON CARDIZEM DRIP AND BUMEX DRIP. DENIES NEEDS AT PRESENT TIME. STATES THAT HE THINKS THE ARTIFICAL SWEETNER IS WHAT IS MAKING HIM SICK. AT BEDSIDE. WILL CONTINUE TO MONITOR.
--- NOTE | 2017-03-17 11:28 | NUR ---
LYING QUIETLY WITH FAMILY AT BEDSIDE. TELEMERTY SHOWS UCAF AT 116 DENIES ANY NEEDS. SR UP WITH CALL LIGHT IN REACH. WILL MONITOR
[2017-03-17 11:46] VITALS: BP 151/89
--- NOTE | 2017-03-17 15:49 | NUR ---
PT LYING QUIETLY. STATES HES FEEL BETTER SINCE STOPPING IV CARDIZEM. TELEMERTY SHOWS CAD 80 TO 95. NO NEEDS VOICED
[2017-03-17 16:00] VITALS: BP 137/77
--- NOTE | 2017-03-17 18:14 | NUR ---
HOB UP. PT DENIES ANY NEEDS. SR UP WITH CALL LIGHT IN REACH. TELEMERTY SHOWS CAF.
[2017-03-17 19:53] VITALS: BP 91/62
--- NOTE | 2017-03-18 01:51 | NUR ---
PT STATES FEELING ANXIOUS AND C/O DYSPNEA. SPO2 IS 97% ON ROOM AIR. O2 2LPM NC PLACED FOR COMFORT. PT STATES FEELING A LOT OF TENSION AND ANXIETY REGARDING HIS HEALTH CARE ISSUES. VALIUM 2 MG PO GIVEN. WILL MONITOR.
[2017-03-18 04:00] VITALS: BP 129/64; BP 130/64
[2017-03-18 05:33] LABS: HEMOGLOBIN 11.4 g/dL (13.5-17.5); MCH 31.6 pg (26.0-34.0); MCHC 32.6 g/dL (31.0-37.0); MEAN PLATELET VOLUME 9.2 fL (7.4-10.4); RBC 3.61 10x6/uL (4.20-6.10); RDW 13.9 % (11.5-14.5); WBC 8.7 10x3/uL (4.8-10.8)
[2017-03-18 06:00] LABS: ANION GAP 13.4 mmol/L (8-16); CALCIUM 8.5 mg/dL (8.5-10.1); CARBON DIOXIDE 27.2 mmol/L (21.0-32.0)
[2017-03-18 06:01] LABS: POTASSIUM - SERUM 4.6 mmol/L (3.5-5.1)
--- NOTE | 2017-03-18 07:27 | NUR ---
ASSESSMENT COMPLETED. TELEMERTY SHOWS CAF AT 101. LEFT WRIST WITH A BUMUEX DRIP AT 5. SCDS ON. 02 AT 2 L/M PER NC. FAMILY AT BEDSIDE. SR UP WITH CALL LIGHT IN REACH
[2017-03-18 08:00] VITALS: BP 106/56
--- NOTE | 2017-03-18 09:10 | NUR ---
UP ON SIDE OF BED. DENIES ANY NEEDS. CALL LIGHT IN REACH WITH SR UP. FAMILY AT BEDSIDE
[2017-03-18 11:45] VITALS: BP 126/70
--- NOTE | 2017-03-18 14:23 | NUR ---
LYING QUIETLY. DENIES ANY NEEDS. CALL LIGHT IN REACH WITH SR UP. TELEMERTY SHOWS CAF
[2017-03-18 15:56] VITALS: BP 124/60
--- NOTE | 2017-03-18 19:00 | NUR ---
INITIAL ROUNDS MADE. PT SITTING UP ON ISE OF BED WITH FAMILY IN ROOM. DISCUSSED FLUID RESTRICTION AND PLAN OF CARE. PT VERBALIZES UNDERSTANDING. NO NEEDS OR C/O VOICED AT THIS TIME. CALL LIGHT IN REACH.
[2017-03-18 21:30] VITALS: BP 114/67
--- NOTE | 2017-03-18 22:49 | NUR ---
SITTING UP ON SIDE OF BED, C/O NAUSEA AND ANXIETY. GIVEN ZOFRAN AND VALIUM ORDERED PRN.
[2017-03-19 00:55] VITALS: BP 119/52
[2017-03-19 05:41] LABS: BASOPHILS 0.2 % (0-2); EOSINOPHILS 2.4 % (0-7); HEMATOCRIT 35.6 % (42.0-54.0); HEMOGLOBIN 11.3 g/dL (13.5-17.5); IMMATURE GRANULOCYTES 0.3 % (0-5); LYMPHOCYTES 12.3 % (15-50); MCHC 31.7 g/dL (31.0-37.0); MCV 97.5 fL (80.0-100.0); MEAN PLATELET VOLUME 9.4 fL (7.4-10.4); MONOCYTES 9.7 % (2-11); NEUTROPHILS 75.1 % (40-80); RBC 3.65 10x6/uL (4.20-6.10); RDW 13.7 % (11.5-14.5); WBC 6.6 10x3/uL (4.8-10.8)
[2017-03-19 05:43] LABS: PLATELET COUNT 152 10x3/uL (130-400)
[2017-03-19 05:55] VITALS: BP 132/87
[2017-03-19 06:09] LABS: ANION GAP 8.8 mmol/L (8-16); CALCIUM 8.1 mg/dL (8.5-10.1); CARBON DIOXIDE 28.1 mmol/L (21.0-32.0); CREATININE - SERUM 2.1 mg/dL (0.6-1.3); DIGOXIN 0.19 ng/mL (0.90-2.00); THYROID STIMULATING HORMONE 2.19 uIU/mL (0.36-3.74)
[2017-03-19 06:13] LABS: POTASSIUM - SERUM 3.9 mmol/L (3.5-5.1)
[2017-03-19 08:00] VITALS: BP 143/86
--- NOTE | 2017-03-19 09:19 | NUR ---
TELEMETRY UCAF. HR 112. IV PATENT. CALL LIGHT IN REACH. WILL CONT. PLAN OF CARE.
--- NOTE | 2017-03-19 10:11 | EC ---
PATIENT:DEJON MTZ DATE OF SERVICE: 03/16/17 SEX: M MEDICAL RECORD: [id number] DATE OF : 42 LOCATION:D.M2 D.211 AGE OF PATIENT: 76 ADMISSION DATE: 03/16/17 REFERRING PHYSICIAN: INTERPRETING PHYSICIAN: LUIS DAVENPORT MD ECHOCARDIOGRAM REPORT ECHO CHARGES 4 ECHO COMPLETE CLINICAL DIAGNOSIS: CHF ECHOCARDIOGRAPHIC MEASUREMENTS (adult normal given) AC root (d.<3.7cm) 3.2 LV Septum d (<1.2 cm> 1.1 Valve Excursion 1.8 LV Septum (systole) 1.6 Left Atria (s.<4.0cm> 4.2 LVPW d(<1.2cm) 1.1 RV (d.<2.3cm) 3.2 LVPW (sytole) 1.6 LV diastole(<5.6CM) 6.6 MV E-F(>70mm/sec) LV systole 4.7 LVOT Diameter 1.9 MV exc.(>10mm) Est.ejection fraction (50-75%) Pericardial Effusion N DOPPLER: LVIT A E 136 LA RVSP 40.0 LVOT 89.0 AOP1/2T Asc. Ao 147 RVOT 64.0 RA PA 87.0 AV Gradient Peak 8.6 AV Mean 4.9 AV Area 1.9 MV Gradient Peak 7.8 MV Mean 3.2 MV Area COMMENTS: Roll Trucker: Sindy BRIDGESOE Marine Water Tender:Perla Tamayo TAPE# PACS DATE OF SERVICE: 03/16/2017 Echocardiogram FINDINGS: 1. Left ventricular chamber size is dilated. Left ventricular systolic function is markedly reduced, overall ejection fraction in the 25% range. 2. Left atrium is enlarged at 4.2 cm. Right atrium and right ventricular chamber sizes are as well mildly dilated. 3. Valvular structures have normal structure and motion. ECHOCARDIOGRAM REPORT [id number] DEJON MTZ 4. Doppler interrogation reveals moderate mitral regurgitation, moderate tricuspid regurgitation, no other valvular insufficiency or stenosis and pulmonary systolic pressure is elevated estimated at 40 mmHg. 5. No evidence of pericardial effusion or left ventricular thrombus. TRANSINT:[id number] Voice Confirmation ID: [id number] DOCUMENT ID: [id number] LUIS DAVENPORT MD at 1011 CC: [id number] DICTATION DATE: 03/16/17 1716 MARINE WATER TENDER: 03/17/17 0151 ADM IN [facility] [address] [place] [id number]
[2017-03-19 12:38] VITALS: BP 134/67
--- NOTE | 2017-03-19 12:46 | NUR ---
Nutrition follow-up: Diet: ADA consistent CHO low sodium PO intake 100% of meals Labs reviewed Wt: 279# Pt states he is not a diabetic; however, pts glucose has been running high since admit. RDN will leave diet order as is. RDN following.
[2017-03-19 16:33] VITALS: BP 125/55
--- NOTE | 2017-03-19 19:00 | NUR ---
INITIAL ROUNDS MADE. PT SITTING UP IN BED WATCHING TV. RT IN ROOM FOR SCHEDULED UPDRAFT. WILL CONT TO MONITOR.
[2017-03-19 21:30] VITALS: BP 106/55
[2017-03-20 02:21] VITALS: BP 108/59
[2017-03-20 04:59] LABS: BASOPHILS 0.3 % (0-2); EOSINOPHILS 3.1 % (0-7); HEMATOCRIT 35.3 % (42.0-54.0); HEMOGLOBIN 11.5 g/dL (13.5-17.5); IMMATURE GRANULOCYTES 0.6 % (0-5); LYMPHOCYTES 14.2 % (15-50); MCH 31.3 pg (26.0-34.0); MCHC 32.6 g/dL (31.0-37.0); MCV 96.2 fL (80.0-100.0); MEAN PLATELET VOLUME 9.6 fL (7.4-10.4); MONOCYTES 11.4 % (2-11); NEUTROPHILS 70.4 % (40-80); PLATELET COUNT 158 10x3/uL (130-400); RBC 3.67 10x6/uL (4.20-6.10); RDW 13.3 % (11.5-14.5); WBC 6.8 10x3/uL (4.8-10.8)
[2017-03-20 05:27] LABS: ALBUMIN 3.7 g/dL (3.4-5.0); ANION GAP 13.3 mmol/L (8-16); BILIRUBIN - TOTAL 0.7 mg/dL (0.2-1.3); CALCIUM 8.2 mg/dL (8.5-10.1); CARBON DIOXIDE 28.8 mmol/L (21.0-32.0); CREATININE - SERUM 2.1 mg/dL (0.6-1.3); POTASSIUM - SERUM 4.1 mmol/L (3.5-5.1); PROTEIN - SERUM 6.5 g/dL (6.4-8.2)
[2017-03-20 06:34] VITALS: BP 137/82
[2017-03-20 08:14] VITALS: BP 103/74
--- NOTE | 2017-03-20 08:38 | NUR ---
SPOKE WITH MONA VIA PHONE TO ADVISE OK WITH CARDIOLOGY TO DC HOME. SHE WILL LET DR. YU KNOW TO PUT DISCHARGE IN.
--- NOTE | 2017-03-20 10:22 | NUR ---
Patient Name: DEJON MTZ Admission Status: ER Accout number: [id number] Admission Date: 03-16-2017 : 1940 Admission Diagnosis: Attending: IMANI Current LOS: 4 Anticipated DC Date: 03-20-2017 Planned Disposition: Home Primary Insurance: [facility] Discharge Planning Comments: * Is the patient Alert and Oriented? Yes 0 * How many steps to enter\exit or inside your home? 4-5 W/RAIL 0 * PCP DR. YU 0 * Pharmacy [facility] 0 * Preadmission Environment Home with Family 0 * ADLs Independent 0 * Equipment CPAP 0 * Other Equipment NO MEDICAL EQUIPMENT PROVIDER PREFERNCE CPAP FROM UNKNOWN OUT OF STATE PROVIDER 0 * List name and contact numbers for known caregivers / representatives who currently or will assist patient after discharge: DELMIS MTZ, SPOUSE, 0 * Community resources currently utilized None 0 * Please name any agencies selected above. NONE 0 * Additional services required to return to the preadmission environment? No 0 * Can the patient safely return to the preadmission environment? Yes 0 * Has this patient been hospitalized within the prior 30 days at any hospital? No 0 CM MET WITH PT AND SPOUSE IN ROOM TO DISCUSS DISCHARGE PLANNING AND NEEDS. PT REPORTS LIVING AT HOME INDEPENDENTLY WITH HIS SPOUSE. PT'S ADULT DAUGHTER IS ALSO STAYING AT THEIR HOME FOR PT'S RECOVERY. PT HAS A CPAP FROM UNKNOWN OUT OF STATE PROVIDER, PT REPORTS HAVING THE MACHINE FOR A VERY LONG TIME AND HE STILL USES IT. PT HAS NO MEDICAL EQUIPMENT PROVIDER PREFERENCE AND NO OUTSIDE SERVICES ASSISTING IN THE HOME. CM DISCUSSED AVAILABILITY OF HOME HEALTH, REHAB SERVICES AND MEDICAL EQUIPMENT. PT DENIES DISCHARGE NEEDS, REPORTS HIS DAUGTHER WILL PICK PT AND SPOUSE UP FOR DISCHARGE HOME THIS MORNING. IMPORTANT MESSAGE FROM MEDICARE PROVIDED AND EXPLAINED. Fancy Needleworker: Carlo Cuellar
--- NOTE | 2017-03-20 10:37 | NUR ---
TELEMETRY SR. BUMEX GTT DCD. CALMOSEPTINE GIVEN FOR REDNESS TO GROIN. CALL LIGHT IN REACH. WILL CONT. PLAN OF CARE.
[2017-03-20] MEDS ORDERED: LANOXIN125 MCG PO (13:48)
[2017-03-20] MEDS ORDERED: COREG12.5 MG PO (13:48)
[2017-03-20] MEDS ORDERED: CALAN SR120 MG PO (13:48)
[2017-03-20] MEDS ORDERED: FUROSEMIDE40 MG PO (13:49)
[2017-03-20] MEDS ORDERED: LEXAPRO10 MG PO (13:49)
--- NOTE | 2017-03-20 14:38 | NUR ---
IV AND TELEMETRY DCD. DC PLANS GIVEN. UNDERSTANDING VOICED. ESCORTED TO CAR BY W/C.
--- NOTE | 2017-03-20 14:49 | NUR ---
IV AND TELEMETRY DCD. DC PLANS GIVEN. UNDERSTANDING VOICED. ESCORTED TO CAR BY W/C.
== END 2017-03-20 14:50 | disposition home or self-care (01) | DRG 309 ==
LOC: D.ER 20:51 → D.M2 23:55 → OBSVTIME 23:55 → D.M2 03-16 12:19
PROVIDERS: Emergency Medicine; Family Medicine; ADMIT Family Medicine
DX: I48.91 Unspecified atrial fibrillation (principal); Z68.41 Body mass index [BMI] 40.0-44.9, adult; I11.0 Hypertensive heart disease with heart failure; I50.9 Heart failure, unspecified; E11.9 Type 2 diabetes mellitus without complications; F32.9 Major depressive disorder, single episode, unspecified; J44.9 Chronic obstructive pulmonary disease, unspecified; Z86.73 Personal history of transient ischemic attack (TIA), and cerebral infarction without residual deficits; Z87.891 Personal history of nicotine dependence

== ENCOUNTER 2017-03-22 14:52 | Emergency (ER) | payer MEDICARE ==
[2017-03-16 10:28] VITALS: BMI 48.0
[~2017-03-22 14:52] MED LIST changes: +CALAN SR120 MG PO; +CARTIA XT240 MG PO; +ELOCON45 GM TOPICAL; +FUROSEMIDE40 MG PO; +K-DUR20 MEQ PO; +LANOXIN125 MCG PO; +LEXAPRO10 MG PO
[2017-03-22 16:12] LABS: BASOPHILS 0.5 % (0-2); EOSINOPHILS 2.7 % (0-7); HEMATOCRIT 35.8 % (42.0-54.0); HEMOGLOBIN 11.8 g/dL (13.5-17.5); IMMATURE GRANULOCYTES 0.3 % (0-5); LYMPHOCYTES 11.4 % (15-50); MCH 31.3 pg (26.0-34.0); MEAN PLATELET VOLUME 9.3 fL (7.4-10.4); MONOCYTES 6.8 % (2-11); NEUTROPHILS 78.3 % (40-80); PLATELET COUNT 175 10x3/uL (130-400); RBC 3.77 10x6/uL (4.20-6.10); RDW 13.6 % (11.5-14.5); WBC 7.8 10x3/uL (4.8-10.8)
[2017-03-22 16:37] LABS: ALBUMIN 3.7 g/dL (3.4-5.0); ANION GAP 12.6 mmol/L (8-16); BILIRUBIN - TOTAL 0.73 mg/dL (0.2-1.3); CALCIUM 8.9 mg/dL (8.5-10.1); CARBON DIOXIDE 28.3 mmol/L (21.0-32.0); CREATININE - SERUM 1.7 mg/dL (0.6-1.3); POTASSIUM - SERUM 3.9 mmol/L (3.5-5.1); PROTEIN - SERUM 6.5 g/dL (6.4-8.2)
== END 2017-03-22 20:50 | disposition home or self-care (01) ==
LOC: D.ER 14:52
PROVIDERS: Emergency Medicine
DX: R06.02 Shortness of breath (principal); I50.9 Heart failure, unspecified; I48.91 Unspecified atrial fibrillation; I12.9 Hypertensive chronic kidney disease with stage 1 through stage 4 chronic kidney disease, or unspecified chronic kidney disease; N18.9 Chronic kidney disease, unspecified; I25.10 Atherosclerotic heart disease of native coronary artery without angina pectoris; I45.10 Unspecified right bundle-branch block

== ENCOUNTER 2017-08-18 14:52 | Emergency (ER) | payer MEDICARE ==
[2017-03-16 10:28] VITALS: BMI 48.0
[2017-08-18 16:21] LABS: BASOPHILS 0.6 % (0-2); EOSINOPHILS 2.9 % (0-7); HEMATOCRIT 32.2 % (42.0-54.0); HEMOGLOBIN 10.1 g/dL (13.5-17.5); IMMATURE GRANULOCYTES 0.5 % (0-5); LYMPHOCYTES 9.6 % (15-50); MCH 29.7 pg (26.0-34.0); MCHC 31.4 g/dL (31.0-37.0); MCV 94.7 fL (80.0-100.0); MONOCYTES 10.5 % (2-11); NEUTROPHILS 75.9 % (40-80); PLATELET COUNT 151 10x3/uL (130-400); RDW 15.3 % (11.5-14.5); WBC 6.6 10x3/uL (4.8-10.8)
[2017-08-18 16:33] LABS: ALBUMIN 3.7 g/dL (3.4-5.0); ANION GAP 13.2 mmol/L (8-16); BILIRUBIN - TOTAL 0.94 mg/dL (0.2-1.3); CALCIUM 8.4 mg/dL (8.5-10.1); CARBON DIOXIDE 28.3 mmol/L (21.0-32.0); CREATININE - SERUM 1.3 mg/dL (0.6-1.3); POTASSIUM - SERUM 4.5 mmol/L (3.5-5.1); PROTEIN - SERUM 6.8 g/dL (6.4-8.2)
== END 2017-08-18 17:43 | disposition home or self-care (01) ==
LOC: D.ER 14:52
PROVIDERS: Physician Assistant Medical
DX: I50.9 Heart failure, unspecified (principal); I12.9 Hypertensive chronic kidney disease with stage 1 through stage 4 chronic kidney disease, or unspecified chronic kidney disease; N18.9 Chronic kidney disease, unspecified

== ENCOUNTER 2017-11-05 09:18 | Emergency (ER) | payer MEDICARE ==
[2017-03-16 10:28] VITALS: BMI 48.0
[2017-11-05 10:54] LABS: BASOPHILS 0.4 % (0-2); EOSINOPHILS 1.7 % (0-7); HEMATOCRIT 30.3 % (42.0-54.0); HEMOGLOBIN 9.1 g/dL (13.5-17.5); IMMATURE GRANULOCYTES 0.7 % (0-5); LYMPHOCYTES 5.4 % (15-50); MCH 24.8 pg (26.0-34.0); MCV 82.6 fL (80.0-100.0); MEAN PLATELET VOLUME 8.7 fL (7.4-10.4); MONOCYTES 10.4 % (2-11); NEUTROPHILS 81.4 % (40-80); PLATELET COUNT 159 10x3/uL (130-400); RBC 3.67 10x6/uL (4.20-6.10); RDW 15.7 % (11.5-14.5); WBC 9.1 10x3/uL (4.8-10.8)
[2017-11-05 11:15] LABS: ALBUMIN 4.1 g/dL (3.4-5.0); ANION GAP 11.3 mmol/L (8-16); CALCIUM 8.9 mg/dL (8.5-10.1); CARBON DIOXIDE 33.3 mmol/L (21.0-32.0); CREATININE - SERUM 1.6 mg/dL (0.6-1.3); POTASSIUM - SERUM 3.6 mmol/L (3.5-5.1); PROTEIN - SERUM 7.2 g/dL (6.4-8.2)
[2017-11-05 11:22] LABS: URIC ACID 12.5 mg/dL (2.6-7.2)
== END 2017-11-05 12:09 | disposition home or self-care (01) ==
LOC: D.ER 09:18
PROVIDERS: Nurse Practitioner Family
DX: M10.062 Idiopathic gout, left knee (principal); M25.562 Pain in left knee; I50.9 Heart failure, unspecified; I12.9 Hypertensive chronic kidney disease with stage 1 through stage 4 chronic kidney disease, or unspecified chronic kidney disease; N18.9 Chronic kidney disease, unspecified